=== PATIENT | male | born 1990 | race Caucasian/White ===

== ENCOUNTER 2019-02-19 10:48 | Emergency (ER) | payer OTHER ==
[~2019-02-19] VITALS: Ht 180.3 cm; Wt 64.0 kg
[~2019-02-19 10:48] MED LIST: ACET500C5 PO; AMOX1TAB10 PO
[2019-02-19 10:52] VITALS: BP 165/78; PULSE 90; RESP 20; Ht 180.3 cm; Wt 64.0 kg
--- NOTE | 2019-02-19 11:06 | ERD ---
ER Documentation Chief Complaint Chief Complaint CAT BITE HPI 28-year-old male presents to ED status post cat bite on his anterior left ankle 2 nights ago. He states that he went to his campus clinic yesterday which they told him to go to the emergency department if his symptoms got worse. He reports since visiting his campus clinic he is experiencing more pain, more redness more swelling. He denies any fevers or chills. He states he is up-to-date on his tetanus vaccine. He has not taken any medications for his symptoms. His clinic did not give him any medications. He did not want to take antibiotics yesterday. He states past medical history of chronic diarrhea due to IBS in which he is seeing a GI specialist. He denies any other past medical history ROS All systems reviewed and are negative except as per history of present illness. Medications Home Meds Active Scripts Acetaminophen* (Tylophen*) 500 Mg Capsule, 1 CAP PO Q6H PRN for PAIN AND OR ELEVATED TEMP, #30 CAP Prov:ELIO OLIVEIRA PA-C 02/19/19 Amoxicillin/Potassium Clav (Amox-Clav 875-125 mg Tablet) 875-125 mg Tab, 1 TAB PO BID for 7 Days, #14 TAB Prov:ELIO OLIVEIRA PA-C 02/19/19 FmHx Family History: No diabetes Physical Exam Vitals Vital Signs Date Temp Pulse Resp B/P (MAP) Pulse Ox O2 O2 Flow FiO2 Time Delivery Rate 02/19/19 98.0 90 20 165/78 98 10:52 (107) Physical Exam Const: No acute distress Head: Atraumatic Resp: Clear to auscultation bilaterally Cardio: Regular rate and rhythm, Abd: Soft, non tender, non distended. Skin: Left ankle: 4 small bite keara lesions on his left anterior ankle. Significant tenderness to touch. Slightly erythematous, swollen. Good 2+ pulse s, good range of motion Neur: Awake and alert Psych: Normal Mood and Affect Results 24 hrs Current Medications Medications Dose Sig/Donnie Start Time Status Last (Trade) Ordered Route PRN Stop Time Admin Dose Reason Admin Bacitracin 1 applic ONCE ONCE 02/19/19 (Bacitracin TOP 11:30 0.5%/ Zinc 02/19/19 11:31 Oint) 650 mg ONCE ONCE 02/19/19 Acetaminophen PO 11:30 (Tylenol 02/19/19 11:31 Tab) Procedures/MDM ED COURSE: The patient was stable throughout ED course. I kept the patient informed of laboratory and diagnostic imaging results throughout the ED course. PROCEDURES: ED wound care MEDICATIONS GIVEN: Tylenol, bacitracin Patient tolerated medication well with no adverse reactions. Patient reported improvement in pain. MEDICAL DECISION MAKING: Patient is a 28-year-old male presenting with a cat bite x2 days. I have low suspicion for cellulitis, abscess, deep tissue tracking, systemic infection, or other emergent conditions. During the ED visit patients wound was cleaned and a new dressing with bacitracin was applied. Patient was instructed to ice his lesion several times a day. Patient was given prescription for Augmentin and Tylenol. Patient was given strict return ED precautions symptoms persist or worsen. All questions were answered. Patient agreed with the plan. Vital signs were reviewed. Patient is afebrile. Patient was not hypoxic. Patient was hemodynamically stable. Patient was told to follow up with primary care for further care and management. PRESCRIPTION: Augmentin, Tylenol DISCHARGE: At this time, patient is stable for discharge and outpatient management. I have instructed the patient to follow-up with their primary care physician in 1-2 days. I have discussed with the patient the possibility of needing to see a specialist for further workup and imaging studies if symptoms persist. I have instructed the patient to promptly return to the ER for any new or worsening symptoms including increased pain, fever, nausea, vomiting, weakness or LOC. The patient expressed understanding of and agreement with this plan. All questions were answered. Home care instructions were provided. Disclaimer: Inadvertent spelling and grammatical errors are likely due to EHR/dictation software use and do not reflect on the overall quality of patient care. Also, please note that the electronic time recorded on this note does not necessarily reflect the actual time of the patient encounter. Departure Diagnosis: Primary Impression: Bite wound Condition: Fair Patient Instructions: Animal Bite, General Referrals: COMMUNITY CLINICS YOU HAVE RECEIVED A MEDICAL SCREENING EXAM AND THE RESULTS INDICATE THAT YOU DO NOT HAVE A CONDITION THAT REQUIRES URGENT TREATMENT IN THE EMERGENCY DEPARTMENT. FURTHER EVALUATION AND TREATMENT OF YOUR CONDITION CAN WAIT UNTIL YOU ARE SEEN IN YOUR DOCTORS OFFICE WITHIN THE NEXT 1-2 DAYS. IT IS YOUR RESPONSIBILITY TO MAKE AN APPOINTMENT FOR FOLOW-UP CARE. IF YOU HAVE A PRIMARY DOCTOR --you should call your primary doctor and schedule an appointment IF YOU DO NOT HAVE A PRIMARY DOCTOR YOU CAN CALL OUR PHYSICIAN REFERRAL HOTLINE AT IF YOU CAN NOT AFFORD TO SEE A PHYSICIAN YOU CAN CHOSE FROM THE FOLLOWING [facility] [address] [facility] [address] [facility] [address] [facility] [address] [facility] [address] [facility]. [facility] [address] [facility]. [facility] YOU HAVE RECEIVED A MEDICAL SCREENING EXAM AND THE RESULTS INDICATE THAT YOU DO NOT HAVE A CONDITION THAT REQUIRES URGENT TREATMENT IN THE EMERGENCY DEPARTMENT. FURTHER EVALUATION AND TREATMENT OF YOUR CONDITION CAN WAIT UNTIL YOU ARE SEEN IN YOUR DOCTORS OFFICE WITHIN THE NEXT 1-2 DAYS. IT IS YOUR RESPONSIBILITY TO MAKE AN APPOINTMENT FOR FOLOW-UP CARE. IF YOU HAVE A PRIMARY DOCTOR --you should call your primary doctor and schedule and appointment IF YOU DO NOT HAVE A PRIMARY DOCTOR YOU CAN CALL OUR PHYSICIAN REFERRAL HOTLINE AT . IF YOU CAN NOT AFFORD TO SEE A PHYSICIAN YOU CAN CHOSE FROM THE FOLLOWING [facility]: [facility] [id number] [place] [address] [facility] [address] [place] [address] [facility] [address] [place] [address] Additional Instructions: Call your primary care doctor TOMORROW for an appointment during the next 1-2 days.See the doctor sooner or return here if your condition worsens before your appointment time. ELIO OLIVEIRA PA-C Feb 19, 2019 11:06
[2019-02-19] MEDS ORDERED: ACETAMINOPHEN 325 MG TAB PO ONE (11:30)
[2019-02-19] MEDS ORDERED: BACITRACIN 0.5%/ZINC 28.35 GM OINT TOP ONE (11:30)
== END 2019-02-19 11:25 | disposition home or self-care (01) ==
LOC: FTE 10:48
DX: S91.052A Open bite, left ankle, initial encounter (principal); W55.01XA Bitten by cat, initial encounter; Y92.9 Unspecified place or not applicable
CPT/HCPCS: 99283